=== PATIENT | female | born 1970 | race Hispanic/Latino ===

== ENCOUNTER 2019-07-17 08:08 | Day surgery (SDC) | payer OTHER ==
[~2019-07-17 08:08] MED LIST: CEFAZOLIN/SWI 1gm 0 GM/0 ML SYR ONE; NA CHLORIDE 0.9% 0 ML ONE
[2019-07-17] MEDS ORDERED: LIDOCAINE 1% W/EPI 1:100,000 MDV 20 ML VIAL ONE (08:21)
[2019-07-17] MEDS ORDERED: NA CHLORIDE 0.9% 1,000 ML ONE (08:22)
[2019-07-17] MEDS ORDERED: Ringers Lactate 1,000 ML IV ONE (08:25)
[2019-07-17] MEDS ORDERED: PROPOFOL 200 MG/20 ML VIAL IV ONE (08:31)
[2019-07-17] MEDS ORDERED: FENTANYL CITR 100 MCG/2 ML ONE (08:32)
[2019-07-17] MEDS ORDERED: MIDAZOLAM HCL 2 MG/2 ML INJ ONE (08:32)
[2019-07-17] MEDS ORDERED: LIDOCAINE 2% MPF 5 ML VIAL ONE (08:32)
[2019-07-17] MEDS ORDERED: ONDANSETRON 4 MG/2 ML VIAL ONE (08:33)
[2019-07-17 08:42] LABS: Specific Gravity 1.015 (1.005-1.030)
[2019-07-17] MEDS ORDERED: KETOROLAC 30 MG/ML INJ ONE (09:09)
[2019-07-17] MEDS: MORPHINE 4 MG/ML SYR ONE ×2 (09:24→09:29)
[2019-07-17] MEDS ORDERED: PROMETHAZINE 25 MG/ML VIAL ONE (09:31)
[2019-07-17] MEDS ORDERED: IBUPROFEN 200 MG TAB PO ONE (10:00)
[2019-07-17] MEDS ORDERED: IBUPROFEN 400 MG TAB ONE (10:00)
[2019-07-17 11:24] VITALS: BP 116/62; TEMP 98.5; O2SAT 100
--- NOTE | 2019-07-17 21:03 | OP ---
Date of Procedure: 07/17/2019 Surgeon: Shakila Gudino MD Preoperative Diagnoses: Pelvic pain, incomplete uterovaginal prolapse. Postoperative Diagnoses: Pelvic pain, incomplete uterovaginal prolapse. Procedure: Hysteroscopy, D and C. Anesthesia: MAC plus paracervical block. Specimens: Endometrial curettings. Complications: No complications. Drains: No drains. Condition: Patient's condition stable. Findings: Cavity empty, thin lining. Significant anterior wall prolapse and apical prolapse, POP-Q 0, +3, -2, 5, moderate, 8, -2, -2, -2. No labial abnormalities. Perineal abnormalities were seen. Indications For Procedure: The patient is a 49-year-old with pelvic pain. She has been in menopause for 2 years. She has left lower quadrant pain and pelvic pain sometimes on the right side as well, which is progressively getting worse. She had a transvaginal ultrasound done and she also now compla ined of an increasing vaginal bulge, which had been distressful to her. So, plan was made to evaluat e the endometrium since there is no postmenopausal bleeding. She was consented for endometrial sampl ing and she was brought into the OR for this. Description Of Procedure: After informed consent was verified, she was taken back to the OR, placed in supine fashion on the operating table. After MAC was given, she was placed in dorsal lithotomy po sition. Pelvic exam was performed and POP-Q as above. She has a significant anterior wall stage III prolapse and all the POP-Q is as noted above. Prep x3 with Betadine was done. Anterior lip injecte d with 1% lidocaine mixed with 1:100,000 epinephrine 4 o'clock and 8 o'clock positions of the cervico vaginal junction, same was injected 5 cc and 6 cc each. Then, prep x3 with Betadine was done. Sliml ine hysteroscope was used for hysteroscopy directly through the cervical canal into the uterine cavit y. No intracavitary lesions were seen. Cavity was empty and endometrium appeared to be unremarkable . Scope pulled out. Endometrial curettings performed after dilating to 16-Kyrgyz. Scant amount of sampling was retrieved and sent for permanent pathology. All instruments were removed. Instrument a nd sponge counts were correct at the end of the case. The patient tolerated the procedure well. She will follow up with us in the office. She apparently was complaining of a vaginal bulge that she wa nted me to check out that comes and goes and she notes it at the time of the shower, most likely this is a prolapse in the anterior compartment as dictated above. While the patient was under anesthesia it was extremely obvious, so this can be addressed at the same time we addressed the pelvic pain. ARSEN Voice ID: [id number] Report ID: [id number]
== END 2019-07-17 11:15 | disposition home or self-care (01) ==
LOC: OR 08:08
PROVIDERS: ATTEND Obstetrics & Gynecology
PROC: 0UJD8ZZ Inspection of Uterus and Cervix, Via Natural or Artificial Opening Endoscopic (ICD-10-PCS; 2019-07-17)
PROC: 0UDB7ZX Extraction of Endometrium, Via Natural or Artificial Opening, Diagnostic (ICD-10-PCS; principal; 2019-07-17 09:30)
DX: N92.1 Excessive and frequent menstruation with irregular cycle (principal); N81.2 Incomplete uterovaginal prolapse; R10.2 Pelvic and perineal pain; I10 Essential (primary) hypertension; F41.9 Anxiety disorder, unspecified; F17.210 Nicotine dependence, cigarettes, uncomplicated
CPT/HCPCS: 81025; 88305; 58558; J2704; J2550; J2250; J3010; J7120; J7030; J2405; J0690

== ENCOUNTER 2021-04-06 16:31 | Emergency (ER) | payer OTHER ==
--- OUTSIDE RECORDS SUMMARY | 2021-04-06 16:33 | XMS REPORT | Continuity of Care Document ---
:1970 Author Organization [facility] t Address [facility] [address] [place] [address] Care Team Providers Name Role Phone Unavailable Unavailable Unavailable Problems This patient has no known problems. Allergies, Adverse Reactions, Alerts This patient has no known allergies or adverse reactions. Social History Smoking Status Start Date Stop Date Source Light Tobacco Smoker Kody Colunga Medications Ordered Filled Start Stop Current Ordering Indication Dosage Frequency Signature Comments Components Source Medication Medication Date Date Medication? Clinician (SIG) Name Name amoxicillin amoxicillin No 1 Q12H amoxicilli [facility] 875 mg 875 mg n 875 mg da tablet Take tablet Take tablet Medical 1 tablet 1 tablet Take 1 Group every 12 every 12 tablet hours by hours by every 12 oral route. oral route. hours by oral route. Vital Signs Vital Name Observation Time Observation Value Comments Source BP Diastolic 2021-03-08 00:00:00 85 mm[Hg] [facility] Height 2021-03-08 00:00:00 62 [in_i] [facility] BMI (Body Mass 2021-03-08 00:00:00 37.5 kg/m2 [facility] Index) Group BP Systolic 2021-03-08 00:00:00 129 mm[Hg] [facility] Body Weight 2021-03-08 00:00:00 205.1 [lb_av] [facility] Procedures This patient has no known procedures. Plan of Care Planned Activity Planned Date Details Comments Source Future Appointment 2021-06-07 [facility] 13:15:00 [facility]; Group [address], [place] [address] Encounters Start End Encounter Admission Attending Care Care Encounter Source Date/Time Date/Time Type Type Clinicians Facility Department ID 2021-03-08 2021-03-08 JONATHAN Pope [place] - [id number] [facility] 00:00:00 00:00:00 MD: [facility] [address], [facility], [place] [id number] , Ph. Results This patient has no known results.
--- NOTE | 2021-04-06 17:46 | RAD REPORT ---
EXAM DESCRIPTION: RAD - Foot Left 3 View - 04/06/2021 5:38 pm CLINICAL HISTORY: PAIN COMPARISON: No comparisons FINDINGS: Acute fractures involving the first through fifth metatarsals. The first metatarsal fractu re has intra-articular extension and is present at the base. The second through fifth metatarsal frac tures do not have intra-articular extension. No radiopaque foreign bodies. The fractures are displace d by at most a half shaft width. Calcaneal spurring. IMPRESSION: 1st through 5th metatarsal fractures. The first metatarsal fracture does extend to the a rticular surface. .
[2021-04-06] MEDS ORDERED: HYDROCODONE/APAP 7.5/325 MG TAB ONE (18:11)
[2021-04-06] MEDS ORDERED: IBUPROFEN 400 MG TAB ONE (18:11)
--- NOTE | 2021-04-06 18:11 | EDPHYS ---
Physician Documentation [facility] Name: Roseann Cortes Age: 51 yrs Sex: Female : 1970 Arrival Date: 04/06/2021 Time: 16:58 Bed Treatment Private MD: ED Physician Oscar Haque HPI: 04/06 17:40 This 51 yrs old Female presents to ER via Wheelchair with complaints of Toe cp Injury. 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 - Social history:: Smoking status: Patient reports the use of cigarette tobacco products, denies chronic smoking, but will smoke occasionally. ROS: 17:45 MS/extremity: Positive for injury or acute deformity, ecchymosis, pain, swelling, cp tenderness, of the left foot, Negative for paresthesias. 17:45 Eyes: Negative for injury, pain, redness, and discharge. cp 17:45 Constitutional: Negative for body aches, chills, fever. 17:45 Neck: Negative for pain with movement, pain at rest, stiffness. 17:45 Cardiovascular: Negative for chest pain. 17:45 Respiratory: Negative for cough, shortness of breath. 17:45 Abdomen/GI: Negative for abdominal pain. 17:45 Back: Negative for pain at rest, pain with movement. 17:45 Neuro: Negative for headache. 17:45 All other systems are negative. Exam: 17:50 Constitutional: The patient appears in no acute distress, alert, awake, non-toxic, well cp developed, well nourished. 17:50 Head/Face: Normocephalic, atraumatic. cp 17:50 Neck: ROM/movement: is normal, is supple, without pain, no range of motions limitations. 17:50 Chest/axilla: Inspection: normal. 17:50 Cardiovascular: Rate: normal. 17:50 Respiratory: the patient does not display signs of respiratory distress, Respirations: normal. 17:50 Back: pain, is absent, ROM is normal. 17:50 Musculoskeletal/extremity: Extremities: grossly normal except: noted in the left foot: ecchymosis, pain, swelling, tenderness, dorsal swelling and ecchymosis, tender to palpation extending proximal foot to toes, Perfusion: the extremity is normally perfused throughout, Sensation intact. Vital Signs: 17:02 BP 137 / 85; Pulse 65; Resp 18 S; Temp 97.2(TE); Pulse Ox 98% on R/A; Weight 87.54 kg ca1 (R); Height 5 ft. 2 in. (157.48 cm) (R); Pain 10/10; 17:02 Body Mass Index 35.30 (87.54 kg, 157.48 cm) ca1 Procedures: 18:45 Splinting: Splint applied to left foot using Orthoglass splint, posterior short leg. cp applied by nurse. Examined by me, post splint application: neurovascular intact, Patient tolerated well. MDM: 17:31 Patient medically screened. cp 18:00 Differential diagnosis: fracture, sprain, dislocation, contusion. cp 18:10 Data reviewed: vital signs, nurses notes, radiologic studies, plain films. cp 18:10 Test interpretation: by ED physician or midlevel provider: plain radiologic studies. cp Counseling: I had a detailed discussion with the patient and/or guardian regarding: the historical points, exam findings, and any diagnostic results supporting the discharge/admit diagnosis, radiology results, the need for outpatient follow up, for definitive care, a orthopedic surgeon, to return to the emergency department if symptoms worsen or persist or if there are any questions or concerns that arise at home. Response to treatment: the patient's symptoms have markedly improved after treatment, and as a result, I will discharge patient. 04/06 17:35 Order name: Foot Left 3 View; Complete Time: 17:59 EDMS 04/06 18:08 Order name: Splint - Posterior Leg; Complete Time: 19:05 cp 04/06 18:08 Order name: Crutches; Complete Time: 19:04 cp Administered Medications: 17:45 Drug: Hydrocodone-Acetaminophen (7.5 mg-325 mg) 1 tabs {Note: rass 0.} Route: PO; ca1 19:04 Follow up: Response: No adverse reaction; Pain is decreased ss 17:51 Drug: Ibuprofen 800 mg Route: PO; ca1 19:05 Follow up: Response: No adverse reaction; Pain is decreased ss Disposition Summary: 04/06/21 18:10 Discharge Ordered Location: Home cp Problem: new cp Symptoms: have improved cp Condition: Stable cp Diagnosis - Fracture of unspecified metatarsal bone(s), left foot, initial encounter for closed cp fracture - First thru Fifth Metatarsal Fractures Followup: cp - With: Kike Elder MD - When: 2 - 3 days - Reason: Recheck today's complaints Discharge Instructions: - Discharge Summary Sheet cp - Metatarsal Fracture cp Forms: - Medication Reconciliation Form cp - Thank You Letter cp - Antibiotic Education cp - Prescription Opioid Use cp Prescriptions: - Ibuprofen 800 mg Oral Tablet - take 1 tablet by ORAL route every 8 hours As needed take with food; 30 tablet; cp Refills: 0, Product Selection Permitted - Ultracet 37.5-325 mg Oral Tablet - take 1 tablet by ORAL route every 6 hours - for up to 5 days; do not exceed 8 cp tablets per day.; 20 tablet; Refills: 0, Product Selection Permitted Signatures: Dispatcher [employer] EDMS Tee Sykes PA PA cp Bing Pepper RN RN ca1 Shalonda Mcneal RN ss Corrections: (The following items were deleted from the chart) 17:35 17:05 Foot Right 3 View+RAD.RAD.BRZ ordered. EDMS EDMS 17:38 17:29 Foot Left 3 View+RAD.RAD.BRZ ordered. EDMS EDMS
--- NOTE | 2021-04-06 18:11 | ER ---
Nurse's Notes 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 Now, it's ca1 swollen, toes hurting and bruised. Coronavirus screen: Client denies travel out of the [place] in the last 14 days. At this time, the client does not indicate any symptoms associated with coronavirus-19. Ebola Screen: Patient negative for fever greater than or equal to 101.5 degrees Fahrenheit, and additional compatible Ebola Virus Disease symptoms Patient denies exposure to infectious person. Patient denies travel to an Ebola-affected area in the 21 days before illness onset. No symptoms or risks identified at this time. Initial Sepsis Screen: Does the patient meet any 2 criteria? No. Patient's initial sepsis screen is negative. Does the patient have a suspected source of infection? No. Patient's initial sepsis screen is negative. Risk Assessment: Do you want to hurt yourself or someone else? Patient reports no desire to harm self or others. Onset of symptoms was April 06, 2021. 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 - Social history:: Smoking status: Patient reports the use of cigarette tobacco products, denies chronic smoking, but will smoke occasionally. Screenin:28 Abuse screen: Denies threats or abuse. Denies injuries from another. Nutritional ca1 screening: No deficits noted. Tuberculosis screening: No symptoms or risk factors identified. Fall Risk Fall in past 12 months (25 points). Total Sánchez Fall Scale indicates No Risk (0-24 pts). Assessment: 17:26 General: Appears in no apparent distress. comfortable, Behavior is calm, cooperative, ca1 appropriate for age. Pain: Complains of pain in left foot Pain currently is 10 out of 10 on a pain scale. Pain began 2-3 days ago. Neuro: Level of Consciousness is awake, alert, obeys commands, Oriented to person, place, time, situation. Derm: Skin is intact, Skin is pink, warm \T\ dry. Bruising that is dark purple, on lateral aspect of left toes, left first toe, left second toe, left third toe, left fourth toe, left fifth toe and medial aspect of left toes. 17:28 Musculoskeletal: Circulation, motion, and sensation intact. Capillary refill < 3 ca1 seconds. Vital Signs: 17:02 BP 137 / 85; Pulse 65; Resp 18 S; Temp 97.2(TE); Pulse Ox 98% on R/A; Weight 87.54 kg ca1 (R); Height 5 ft. 2 in. (157.48 cm) (R); Pain 10/10; 17:02 Body Mass Index 35.30 (87.54 kg, 157.48 cm) ca1 ED Course: 16:58 Patient arrived in ED. mr 17:04 Triage completed. ca1 17:04 Arm band placed on right wrist. ca1 17:26 Bing Pepper, RN is Primary Nurse. ca1 17:28 Patient has correct armband on for positive identification. Bed in low position. Call ca1 light in reach. Side rails up X 1. 17:29 Tee Sykes PA is PHCP. cp 17:29 Oscar Haque MD is Attending Physician. cp 17:38 Foot Left 3 View In Process Unspecified. EDMS 18:08 Kike Elder MD is Referral Physician. cp 19:05 No provider procedures requiring assistance completed. Patient did not have IV access ss during this emergency room visit. Crutch training done. Vinay tape left fourth toe and left third toe and left second toe and left first toe Orthoglass splint: Posterior short lleg splint applied on left leg. Administered Medications: 17:45 Drug: Hydrocodone-Acetaminophen (7.5 mg-325 mg) 1 tabs {Note: rass 0.} Route: PO; ca1 19:04 Follow up: Response: No adverse reaction; Pain is decreased ss 17:51 Drug: Ibuprofen 800 mg Route: PO; ca1 19:05 Follow up: Response: No adverse reaction; Pain is decreased ss Outcome: 18:10 Discharge ordered by . cp 19:08 Discharged to home via wheelchair, with crutches, with family. ss 19:08 Condition: good 19:08 Discharge instructions given to patient, family, Instructed on discharge instructions, follow up and referral plans. Demonstrated understanding of instructions, follow-up care. 19:09 Patient left the ED. ss Signatures: Dispatcher [employer] KETURAHJackie Allison Shalonda Mcneal RN RN ss Tee Sykes PA PA cp Acob, Cheryl, RN RN ca1 Corrections: (The following items were deleted from the chart) 17:29 17:26 Derm: Skin is intact, Skin is pink, warm \T\ dry. Bruising that is dark purple, on ca1 lateral aspect of left toes ca1
[2021-04-06 19:28] VITALS: BP 137/85; TEMP 97.2; O2SAT 98
== END 2021-04-06 19:09 | disposition home or self-care (01) ==
LOC: ER 16:31
PROC: 2W3RX1Z Immobilization of Left Lower Leg using Splint (ICD-10-PCS; principal; 2021-04-06)
DX: S92.312A Displaced fracture of first metatarsal bone, left foot, initial encounter for closed fracture (principal); S92.322A Displaced fracture of second metatarsal bone, left foot, initial encounter for closed fracture; S92.332A Displaced fracture of third metatarsal bone, left foot, initial encounter for closed fracture; S92.342A Displaced fracture of fourth metatarsal bone, left foot, initial encounter for closed fracture; S92.352A Displaced fracture of fifth metatarsal bone, left foot, initial encounter for closed fracture; W22.8XXA Striking against or struck by other objects, initial encounter; I10 Essential (primary) hypertension; F17.210 Nicotine dependence, cigarettes, uncomplicated
CPT/HCPCS: 99283